=== PATIENT | female | born 1940 | race Caucasian/White ===

== ENCOUNTER 2017-05-11 22:24 | Inpatient (IN) | payer OTHER ==
[~2017-05-11] VITALS: Ht 162.6 cm; Wt 70.3 kg
[2017-05-11 22:33] VITALS: Ht 162.6 cm; Wt 70.3 kg
[2017-05-11 23:42] LABS: BASOPHIL % 0.3 % (0-2); CALCIUM 9.6 mg/dL (8.5-10.1); CARBON DIOXIDE 27.6 mmol/L (21-32); CHLORIDE SERUM 103 mmol/L (98-107); CREATININE SERUM 1.1 mg/dL (0.6-1.0); GLUCOSE SERUM 113 mg/dL (74-106); PLATELET COUNT 246 x10^3mcL (130-400); POTASSIUM SERUM 3.9 mmol/L (3.5-5.1); RED CELL DISTRIBUTION WIDTH 12.4 % (11.5-14.5); SODIUM SERUM 139 mmol/L (136-145)
[2017-05-11 23:46] LABS: ALBUMIN 4.1 g/dL (3.4-5.0); ALKALINE PHOSPHATASE 90 U/L (46-116); ALT/SGPT 20 U/L (14-59); AMYLASE 60 U/L (25-115); AST/SGOT 16 U/L (15-37); BILIRUBIN TOTAL 0.6 mg/dL (0.20-1.00); LIPASE 138 IU/L (73-393); TOTAL PROTEIN, SERUM 7.5 g/dL (6.4-8.2)
[2017-05-12] MEDS ORDERED: LOSARTAN POTASS50 M1 PO (02:58)
[2017-05-12 03:36] LABS: T3 TOTAL 1.04 ng/mL
[2017-05-12 03:41] LABS: CHOLESTEROL/HDL RATIO 3.2; MAGNESIUM 2.3 mg/dL (1.8-2.4)
[2017-05-12 03:42] LABS: FREE T4 0.73 ng/dL (0.76-1.46); FREE THYROXINE INDEX 1.7 ug/dL (1.4-4.5); T4(THYROXINE) 4.9 ug/dL (4.7-13.3)
[2017-05-12 03:49] VITALS: BP 142/70
[2017-05-12 04:58] LABS: UA SPECIFIC GRAVITY 1.015 (1.005-1.035); microscopic required? YES; urine erythrocyte NEGATIVE (NEGATIVE)
[2017-05-12 05:07] LABS: AMPHETAMINE QUAL UR NONE DETECTED (NEG <=1000)
[2017-05-12 07:00] LABS: BASOPHIL % 0.2 % (0-2); PLATELET COUNT 194 x10^3mcL (130-400); RED CELL DISTRIBUTION WIDTH 12.6 % (11.5-14.5)
[2017-05-12 07:14] LABS: CALCIUM 8.6 mg/dL (8.5-10.1); CARBON DIOXIDE 24.4 mmol/L (21-32); CHLORIDE SERUM 107 mmol/L (98-107); GLUCOSE SERUM 102 mg/dL (74-106); PHOSPHOROUS 2.9 mg/dL (2.5-4.9); POTASSIUM SERUM 4.2 mmol/L (3.5-5.1); SODIUM SERUM 139 mmol/L (136-145)
[2017-05-12 09:17] VITALS: BP 107/77
[2017-05-12 12:36] VITALS: BP 109/63
[2017-05-12 21:08] VITALS: BP 129/66
[2017-05-13 05:25] VITALS: BP 106/63
[2017-05-13 06:08] LABS: BASOPHIL % 0.4 % (0-2); PLATELET COUNT 199 x10^3mcL (130-400); RED CELL DISTRIBUTION WIDTH 12.5 % (11.5-14.5)
[2017-05-13 06:33] LABS: CALCIUM 8.8 mg/dL (8.5-10.1); CARBON DIOXIDE 24.9 mmol/L (21-32); CHLORIDE SERUM 106 mmol/L (98-107); CREATININE SERUM 1.1 mg/dL (0.6-1.0); GLUCOSE SERUM 92 mg/dL (74-106); SODIUM SERUM 140 mmol/L (136-145)
[2017-05-13 09:08] VITALS: BP 107/61
[2017-05-13 12:27] VITALS: BP 99/56
[2017-05-13 17:03] VITALS: BP 105/63
[2017-05-13 22:02] VITALS: BP 125/71
[2017-05-14 05:44] VITALS: BP 107/65
[2017-05-14 06:10] LABS: BASOPHIL % 0.6 % (0-2); PLATELET COUNT 214 x10^3mcL (130-400); RED CELL DISTRIBUTION WIDTH 12.4 % (11.5-14.5)
[2017-05-14 06:42] LABS: CARBON DIOXIDE 23.6 mmol/L (21-32); CHLORIDE SERUM 106 mmol/L (98-107); CREATININE SERUM 1.2 mg/dL (0.6-1.0); GLUCOSE SERUM 63 mg/dL (74-106); MAGNESIUM 2.2 mg/dL (1.8-2.4); PHOSPHOROUS 3.5 mg/dL (2.5-4.9); POTASSIUM SERUM 3.9 mmol/L (3.5-5.1); SODIUM SERUM 142 mmol/L (136-145)
[2017-05-14 09:27] VITALS: BP 120/7; BP 120/78
[2017-05-14] MEDS ORDERED: OMEPRAZOLE40 M1 PO (13:00)
[2017-05-14] MEDS ORDERED: FLA500 PO (13:02)
[2017-05-14] MEDS ORDERED: LEVAQUIN750 MG PO (13:03)
[2017-05-14] MEDS ORDERED: LAC PO (13:03)
[2017-05-14] MEDS ORDERED: FLO4 PO (13:13)
[2017-05-14 14:29] VITALS: BP 120/78
[2017-05-14 17:01] VITALS: BP 107/62
[2017-05-14] MEDS ORDERED: LIPI10 PO (21:23)
== END 2017-05-14 19:09 | disposition home or self-care (01) | DRG 391 ==
LOC: ED 22:24 → MU 05-12 01:29 → DU 05-12 01:29 → MU 05-13 08:52
PROVIDERS: Emergency Medicine; Family Medicine
DX: K57.12 Diverticulitis of small intestine without perforation or abscess without bleeding (principal); N17.0 Acute kidney failure with tubular necrosis; N39.0 Urinary tract infection, site not specified; K57.30 Diverticulosis of large intestine without perforation or abscess without bleeding; N20.0 Calculus of kidney; N28.1 Cyst of kidney, acquired; D35.02 Benign neoplasm of left adrenal gland; K21.9 Gastro-esophageal reflux disease without esophagitis; K44.9 Diaphragmatic hernia without obstruction or gangrene; K76.0 Fatty (change of) liver, not elsewhere classified; M06.9 Rheumatoid arthritis, unspecified; E78.5 Hyperlipidemia, unspecified; Z68.27 Body mass index [BMI] 27.0-27.9, adult
CPT/HCPCS: 83880; 84439; A9698; C9113; G0480; J0696; J2270; J2405; J2543; J3490; J7030; J7120; Q0092; Q9966; Q9967

== ENCOUNTER 2019-09-18 12:29 | Emergency (ER) | payer OTHER ==
[~2019-09-18] VITALS: Ht 160 cm; Wt 69.9 kg
[~2019-09-18 12:29] MED LIST: FLA500 PO; FLO4 PO; LAC PO; LEVAQUIN750 MG PO; LIPI10 PO; LOSARTAN POTASS50 M1 PO; OMEPRAZOLE40 M1 PO
[2019-09-18 12:40] VITALS: Ht 160 cm; Wt 69.9 kg
[2019-09-18 18:12] VITALS: BP 149/81
== END 2019-09-18 18:12 | disposition home or self-care (01) ==
LOC: ED 12:29
DX: M54.41 Lumbago with sciatica, right side (principal); I10 Essential (primary) hypertension; M19.90 Unspecified osteoarthritis, unspecified site; Z88.2 Allergy status to sulfonamides
CPT/HCPCS: Q0092